=== PATIENT | female | born 1990 | race African-American/Black ===

== ENCOUNTER 2018-06-01 11:07 | Emergency (ER) | payer OTHER ==
[~2018-06-01] VITALS: Ht 162.6 cm; Wt 58.1 kg
--- NOTE | ~2018-06-01 | EKG ---
[place] [address] [facility] [email or web address] [address] ELECTROCARDIOGRAM REPORT Name: MARGARITA PARR Room #: [id number] Admission: 06/01/18 Attend Phys: Discharge: 06/01/18 Date of : [birth year] Report #: [id number] THIS REPORT FOR: //name// [facility] ED Test Date: 2018-06-01 Test Time: 11:07:22 Pat Name: MARGARITA PARR Department: Room: Gender: F Vehicle Service Agent: [facility] : 1990 Requested By: Zach Carrillo Order Number: [id number] MD: Yoan Olivia Measurements Intervals [place] Rate: 85 P: 48 TN: 132 QRS: 30 QRSD: 79 T: 53 QT: 349 QTc: 415 Interpretive Statements Sinus rhythm No significant abnormality No previous ECG available for comparison Electronically Signed On 06-02-2018 8:34:32 CDT by Yoan Olivia [email or web address] <ELECTRONICALLY SIGNED> By: Yoan Olivia MD, [facility] 06/02/18 0834 1107 [id number] Yoan Olivia MD, FACC /EPI
[~2018-06-01 11:07] MED LIST: ALBUTEROL INHAL17 GM IH; CEFDINIR300 MG PO; CLARITIN10 MG PO; DERMOPLAST SPRA56 ML; HYDROCORTISONE30 G9; IBUPROFEN 600600 M1 PO; LANOLIN56 GM; PRENATAL COMPL1 EACH; PROAIR HFA8.5 GM; TUCKS MEDICATE1 EAC1; TUMS CHEWA500 MG/11
[2018-06-01 11:49] LABS: ABSOLUTE NEUTROPHILS 2.6 thou/uL (1.4-8.2); EOSINOPHILS 0.9 % (0.0-3.0); HEMATOCRIT 39.1 % (37.0-47.0); HEMOGLOBIN 13.1 gm/dL (12.0-15.0); LYMPHOCYTES 26.6 % (24.0-44.0); MCH 28.4 pg (26.0-34.0); MCHC 33.6 g/dL (28.0-37.0); MCV 84.4 fL (80.0-100.0); MONOCYTES 7.8 % (1.0-8.0); PLATELET COUNT 275 thou/uL (150-400); POLYS 63.7 % (36.0-66.0); RBC 4.63 mil/uL (4.20-5.00); RDW 14.4 % (10.5-14.5); WBC 4.1 thou/uL (4.0-11.0)
[2018-06-01 11:56] LABS: ANION GAP 7 mmol/L (7-16); BUN 17 mg/dL (7-18); CALCIUM 9.1 mg/dL (8.5-10.1); CHLORIDE 103 mmol/L (98-107); CO2 26 mmol/L (21-32); CREATININE 1.1 mg/dL (0.6-1.0); GLUCOSE 81 mg/dL (74-106); POTASSIUM 3.8 mmol/L (3.5-5.1); SODIUM 136 mmol/L (136-145)
[2018-06-01 12:04] LABS: TROPONIN-I <0.06 ng/mL (<0.06)
[2018-06-01 13:52] LABS: URINE BILIRUBIN NEGATIVE (Negative); URINE BLOOD NEGATIVE (Negative); URINE CLARITY CLEAR; URINE COLOR YELLOW; URINE GLUCOSE-RANDOM* NEGATIVE (Negative); URINE KETONES 1+ (Negative); URINE LEUKOCYTES-REFLEX NEGATIVE (Negative); URINE NITRITE-REFLEX NEGATIVE (Negative); URINE PROTEIN (DIPSTICK) NEGATIVE (Negative); URINE SPECIFIC GRAVITY >= 1.030 (1.005-1.035); URINE UROBILINOGEN 0.2 E.U./dl (0.2-1.0)
[2018-06-01] MEDS ORDERED: ZPAK PO (14:07)
[2018-06-01 14:19] VITALS: BP 109/64
== END 2018-06-01 14:19 | disposition home or self-care (01) ==
LOC: ER 11:07
PROVIDERS: Physician Assistant
DX: J18.9 Pneumonia, unspecified organism (principal); M79.1 Myalgia; M79.602 Pain in left arm; M79.605 Pain in left leg; J45.909 Unspecified asthma, uncomplicated; Z88.6 Allergy status to analgesic agent; Z88.1 Allergy status to other antibiotic agents; Z88.8 Allergy status to other drugs, medicaments and biological substances

== ENCOUNTER 2018-07-13 18:35 | Emergency (ER) | payer OTHER ==
[~2018-07-13] VITALS: Ht 154.9 cm; Wt 61.7 kg
[~2018-07-13 18:35] MED LIST changes: +ZPAK PO
[2018-07-13] MEDS ORDERED: [UNRECOGNIZED DRUG - OTHER] (19:08)
[2018-07-13] MEDS ORDERED: CLARITIN10 M2 PO (19:09)
[2018-07-13] MEDS ORDERED: ACYCLOVIR 400400 MG PO (20:12)
[2018-07-13 20:44] VITALS: BP 120/82
[2018-07-14 08:45] LABS: HSV PCR SOURCE LABIA
[2018-07-14 15:06] LABS: NEISSERIA GONORRHEA-PCR Negative (Negative)
[2018-07-15 22:08] LABS: HSV 1 DNA Negative (Negative); HSV 2 DNA Positive (Negative)
== END 2018-07-13 20:45 | disposition home or self-care (01) ==
LOC: ER 18:35
PROVIDERS: Physician Assistant
DX: A60.09 Herpesviral infection of other urogenital tract (principal); N89.8 Other specified noninflammatory disorders of vagina; J45.909 Unspecified asthma, uncomplicated; G43.909 Migraine, unspecified, not intractable, without status migrainosus; Z88.8 Allergy status to other drugs, medicaments and biological substances; Z88.1 Allergy status to other antibiotic agents; Z88.6 Allergy status to analgesic agent

== ENCOUNTER 2019-07-20 21:54 | Emergency (ER) | payer OTHER ==
[~2019-07-20] VITALS: Ht 154.9 cm; Wt 61.2 kg
[~2019-07-20 21:54] MED LIST changes: +ACYCLOVIR 400400 MG PO; +CLARITIN10 M2 PO; +[UNRECOGNIZED DRUG - OTHER]
[2019-07-20] MEDS ORDERED: ZPAK PO (23:04)
[2019-07-20 23:13] VITALS: BP 119/79
== END 2019-07-20 23:13 | disposition home or self-care (01) ==
LOC: ER 21:54
DX: H66.91 Otitis media, unspecified, right ear (principal); J45.909 Unspecified asthma, uncomplicated; G43.909 Migraine, unspecified, not intractable, without status migrainosus; Z88.1 Allergy status to other antibiotic agents; Z88.6 Allergy status to analgesic agent

== ENCOUNTER 2019-08-18 18:18 | Emergency (ER) | payer OTHER ==
[~2019-08-18] VITALS: Ht 154.9 cm; Wt 63.5 kg
[2019-08-18 18:21] VITALS: BP 129/78
[2019-08-18] MEDS ORDERED: MAGIC MOUTHWASH SWISH&SPIT (18:31)
== END 2019-08-18 18:56 | disposition home or self-care (01) ==
LOC: ER 18:18
DX: K08.89 Other specified disorders of teeth and supporting structures (principal); J45.909 Unspecified asthma, uncomplicated; G43.909 Migraine, unspecified, not intractable, without status migrainosus; Z88.6 Allergy status to analgesic agent; Z88.1 Allergy status to other antibiotic agents

== ENCOUNTER 2021-01-02 20:40 | Emergency (ER) | payer OTHER ==
[~2021-01-02] VITALS: Ht 152.4 cm; Wt 64.0 kg
[~2021-01-02 20:40] MED LIST changes: +MAGIC MOUTHWASH SWISH&SPIT
[2021-01-02] MEDS ORDERED: PROTONIX 20 MG20 MG PO (21:09)
[2021-01-02] MEDS ORDERED: VALACYCLOVIR500 MG PO (21:09)
[2021-01-02 21:25] VITALS: BP 104/77
== END 2021-01-02 21:25 | disposition home or self-care (01) ==
LOC: ER 20:40
DX: R13.10 Dysphagia, unspecified (principal); J45.909 Unspecified asthma, uncomplicated; Z79.899 Other long term (current) drug therapy; Z91.041 Radiographic dye allergy status; Z91.013 Allergy to seafood; Z88.1 Allergy status to other antibiotic agents